=== PATIENT | male | born 1995 | race Two or more races ===

== ENCOUNTER 2021-04-12 13:40 | Outpatient (CLI) | payer MEDICAID | END 2021-04-12 13:41 | disposition critical access hospital (66) | LOC: EMS 13:40 | DX: Z00.8 Encounter for other general examination (principal) | CPT/HCPCS: A0425; A0429; A0999 ==

== ENCOUNTER 2021-04-12 14:03 | Emergency (ER) | payer BC, MEDICAID ==
--- NOTE | 2021-04-12 14:17 | ED Physician Documentation ---
History of Present Illness - Stated complaint Stated Complaint: MHE - Additonal information Additional information: 25-year-old male comes the emergency department for evaluation of mental health exam. He reports that he is in 9 out of 10 psychological discomfort. He feels like he is passing away. He would like his vital signs checked. He states that he is isolated at home. Patient does have a mental health history though the disorder is unclear. He was hospitalized in [place] a number of years ago and started on' Abilify. He states that he sees a psychiatrist Dr. Jacobs in [place]. He stopped taking the Abilify about 10 days ago because he was not sure if he was dying or not. He denies thoughts of self-harm or harm to others. He just wants to "get checked out" Review of Systems Constitutional: reports: Reviewed and negative Ears: reports: Reviewed and negative Nose: reports: Reviewed and negative Throat: reports: Reviewed and negative Cardiac: reports: Reviewed and negative Respiratory: reports: Reviewed and negative GI: reports: Reviewed and negative : reports: Reviewed and negative Skin: reports: Reviewed and negative Psychiatric: reports: Delusions, Anxiety, Insomnia PD PAST MEDICAL HISTORY - Past Surgical History Past Surgical History: No - Present Medications Home Medications: Ambulatory Orders Medication Instructions Recorded Confirmed Ondansetron [Zofran] 4 mg PO Q6H #10 tablet 03/27/13 - Allergies Allergies/Adverse Reactions: Allergies Allergy/AdvReac Type Severity Reaction Status Date / Time No Known Drug Allergies Allergy Verified 04/12/21 14:08 - Social History Does the pt smoke?: No Smoking Status: Never smoker Does the pt drink ETOH?: No Does the pt have substance abuse?: No - Immunizations Immunizations are current?: Yes - POLST Patient has POLST: No PD ED PE NORMAL - General General: Alert and oriented X 3, No acute distress - HEENT HEENT: PERRL - Neck Neck: Supple, no meningeal sign - Cardiac Cardiac: RRR, No murmur - Respiratory Respiratory: Clear bilaterally - Abdomen Abdomen: Normal bowel sounds, Soft, Non tender, Non distended - Derm Derm: Normal color, Warm and dry, No rash - Extremities Extremities: No deformity - Neuro Neuro: Alert and oriented X 3, No motor deficit Eye Opening: Spontaneous Motor: Obeys Commands Verbal: Oriented GCS Score: 15 - Psych Psych: Other (Denies SI HI. Reports feeling like he might be passing away. States that he is in extreme psychological discomfort. No auditory or visual hallucinations. ? delusions) Results - Vitals Vitals: Vital Signs - 24 hr 04/12/21 04/12/21 14:08 14:12 Temperature 36.6 C 36.6 C Heart Rate 96 96 Respiratory 16 16 Rate Blood Pressure 140/90 H 140/90 H O2 Saturation 98 98 Oxygen O2 Source Room air - Labs Labs: Laboratory Tests 04/12/21 04/12/21 04/12/21 14:15 14:15 14:15 WBC 7.4 RBC 4.88 Hgb 14.9 Hct 44.7 MCV 91.6 MCH 30.5 MCHC 33.3 RDW 13.2 Plt Count 248 MPV 10.2 Neut # (Auto) 5.0 Lymph # (Auto) 1.6 [place] # (Auto) 0.5 Eos # (Auto) 0.1 Baso # (Auto) 0.0 Absolute Nucleated RBC 0.00 Nucleated RBC % 0.0 Sodium 137 Potassium 4.2 Chloride 101 Carbon Dioxide 27 Anion Gap 9.0 BUN 10 Creatinine 0.8 Estimated GFR (MDRD) 117 Glucose 105 H Calcium 9.3 Total Bilirubin 0.4 AST 23 ALT 52 Alkaline Phosphatase 100 Total Protein 7.6 Albumin 4.6 Globulin 3.0 Albumin/Globulin Ratio 1.5 Lipase 29 TSH 1.91 Urine Color Urine Clarity Urine pH Ur Specific [place] Urine Protein Urine Glucose (UA) Urine Ketones Urine Occult Blood Urine Nitrite Urine Bilirubin Urine Urobilinogen Ur Leukocyte Esterase Ur Microscopic Review Urine Culture Comments Salicylates < 6.0 Urine Opiates Screen Ur Oxycodone Screen Urine Methadone Screen Ur Propoxyphene Screen Acetaminophen < 10 L Ur Barbiturates Screen Ur Tricyclics Screen Ur Phencyclidine Scrn Ur Amphetamine Screen U Methamphetamines Scrn U Benzodiazepines Scrn Urine Cocaine Screen U Cannabinoids Screen Ethyl Alcohol < 5.0 04/12/21 14:20 WBC RBC Hgb Hct MCV MCH MCHC RDW Plt Count MPV Neut # (Auto) Lymph # (Auto) [place] # (Auto) Eos # (Auto) Baso # (Auto) Absolute Nucleated RBC Nucleated RBC % Sodium Potassium Chloride Carbon Dioxide Anion Gap BUN Creatinine Estimated GFR (MDRD) Glucose Calcium Total Bilirubin AST ALT Alkaline Phosphatase Total Protein Albumin Globulin Albumin/Globulin Ratio Lipase TSH Urine Color LIGHT YELLOW Urine Clarity CLEAR Urine pH 6.5 Ur Specific [place] 1.010 Urine Protein NEGATIVE Urine Glucose (UA) NEGATIVE Urine Ketones NEGATIVE Urine Occult Blood NEGATIVE Urine Nitrite NEGATIVE Urine Bilirubin NEGATIVE Urine Urobilinogen 0.2 (NORMAL) Ur Leukocyte Esterase NEGATIVE Ur Microscopic Review NOT INDICATED Urine Culture Comments NOT INDICATED Salicylates Urine Opiates Screen NEGATIVE Ur Oxycodone Screen NEGATIVE Urine Methadone Screen NEGATIVE Ur Propoxyphene Screen NEGATIVE Acetaminophen Ur Barbiturates Screen NEGATIVE Ur Tricyclics Screen NEGATIVE Ur Phencyclidine Scrn NEGATIVE Ur Amphetamine Screen NEGATIVE U Methamphetamines Scrn NEGATIVE U Benzodiazepines Scrn NEGATIVE Urine Cocaine Screen NEGATIVE U Cannabinoids Screen NEGATIVE Ethyl Alcohol PD MEDICAL DECISION MAKING - ED course Complexity details: reviewed results, re-evaluated patient, d/w patient ED course: 25-year-old male who has an unclear psychiatric disorder but is on atypical ant ipsychotic Abilify presents the emergency department requesting an evaluation to make sure he is okay. He reports to this provider that he does not have thoughts of harm to himself or others but feels that he is in extreme psychological discomfort. He wanted to make sure that he is okay. Screening labs are without acute worrisome findings. No focal neuro signs. He was seen by our social sciences lecturer. She was able to elicit that this gentleman is completing college. 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 A dose was given here in the ER and he is encouraged to resume taking this medication as well as follow-up with his psychiatrist. He was given mental health resources as well as a list of therapists that may help him as he is transitioning through college in the end of the semester. Departure - Departure Disposition: 01 Home, Self Care Clinical Impression: Mental health problem Condition: Stable Record reviewed to determine appropriate education?: Yes Instructions: ED Stress React Comments: Cam thank you for coming to the emergency department today. We always want to help people that are struggling with her mental health. I do recommend that you resume taking the aripiprazole. I want to ensure you that you are very healthy. Your vital signs here were normal. Your labs are also very normal. Completing classes at [employer] can be very stressful and is likely contributing to your symptoms. Please follow-up with the mental health recommendations made by our social sciences lecturer as well is following up with a therapist. If you ever feel unsafe or have thoughts of self-harm then please return immediately to the ER for a second evaluation.
[2021-04-12 14:21] LABS: BASOPHILS % (AUTO) 0.5 %; EOSINOPHILS # (AUTO) 0.1 10^3/uL (0.0-0.7); EOSINOPHILS % (AUTO) 1.5 %; HCT - HEMATOCRIT 44.7 % (42.0-52.0); HGB - HEMOGLOBIN 14.9 g/dL (14.0-18.0); LYMPHOCYTES # (AUTO) 1.6 10^3/uL (1.5-3.5); LYMPHOCYTES % (AUTO) 22.3 %; MEAN CORPUSCULAR HEMOGLOBIN 30.5 pg (27.0-31.0); MEAN CORPUSCULAR HGB CONC 33.3 g/dL (32.0-36.0); MEAN CORPUSCULAR VOLUME 91.6 fL (80.0-94.0); MEAN PLATELET VOLUME 10.2 fL (7.4-11.4); MONOCYTES # (AUTO) 0.5 10^3/uL (0.0-1.0); MONOCYTES % (AUTO) 7.2 %; NEUTROPHILS % (AUTO) 67.4 %; PLT - PLATELET COUNT 248 10^3/uL (130-450); RED BLOOD COUNT 4.88 10^6/uL (4.70-6.10); RED CELL DISTRIBUTION WIDTH 13.2 % (12.0-15.0); WHITE BLOOD COUNT 7.4 x10^3/uL (4.8-10.8)
[2021-04-12 14:22] LABS: MUDS CUTOFF CONCENTRATIONS CUTOFF CONC BELOW:
[2021-04-12 14:31] LABS: BILIRUBIN,URINE NEGATIVE (NEGATIVE); GLUCOSE, URINE (UA) NEGATIVE (NEGATIVE); KETONES,URINE (UA) NEGATIVE (NEGATIVE); LEUKOCYTE ESTERASE, URINE NEGATIVE (NEGATIVE); NITRITE,URINE NEGATIVE (NEGATIVE); OCCULT BLOOD,URINE NEGATIVE (NEGATIVE); PH,URINE 6.5 PH (5.0-7.5); PROTEIN,URINE NEGATIVE (NEGATIVE); UROBILINOGEN,URINE 0.2 (NORMAL) E.U./dL (NORMAL)
[2021-04-12 14:33] LABS: CLARITY,URINE CLEAR (CLEAR)
[2021-04-12 14:37] LABS: ACETAMINOPHEN < 10 ug/mL (10-30); ALBUMIN 4.6 g/dL (3.2-5.5); ALBUMIN/GLOBULIN RATIO 1.5 (1.0-2.2); ALKALINE PHOSPHATASE 100 IU/L (42-121); ALT ALANINE AMINOTRANSFERASE 52 IU/L (10-60); AST ASPARTATE AMINOTRANSFERASE 23 IU/L (10-42); BILIRUBIN,TOTAL 0.4 mg/dL (0.2-1.0); BUN - BLOOD UREA NITROGEN 10 mg/dL (6-20); CALCIUM 9.3 mg/dL (8.5-10.3); CARBON DIOXIDE - CO2 27 mmol/L (21-32); CHLORIDE 101 mmol/L (101-111); CREATININE 0.8 mg/dL (0.6-1.2); ETOH - ETHANOL < 5.0 mg/dL; GFR - MDRD 117 (>89); GLUCOSE 105 mg/dL (70-100); LIPASE 29 U/L (22-51); POTASSIUM 4.2 mmol/L (3.5-5.0); SALICYLATE < 6.0 mg/dL; SODIUM 137 mmol/L (135-145); TOTAL PROTEIN 7.6 g/dL (6.7-8.2)
[2021-04-12 14:42] LABS: AMPHETAMINE SCREEN,URINE NEGATIVE (NEGATIVE); BARBITURATE SCREEN,UR NEGATIVE (NEGATIVE); BENZODIAZEPINES SCREEN, URINE NEGATIVE (NEGATIVE); COCAINE SCREEN URINE NEGATIVE (NEGATIVE); METHADONE SCREEN, URINE NEGATIVE (NEGATIVE); METHAMPHETAMINES SCREEN, URINE NEGATIVE (NEGATIVE); OPIATE SCREEN, URINE NEGATIVE (NEGATIVE); OXYCODONE SCREEN, URINE NEGATIVE (NEGATIVE); PROPOXYPHENE SCREEN, URINE NEGATIVE (NEGATIVE); THC CANNABINOID SCREEN, URINE NEGATIVE (NEGATIVE); TRICYCLIC ANTIDEPRESSANT,URINE NEGATIVE (NEGATIVE)
[2021-04-12 15:54] VITALS: BP 147/107
[2021-04-13] MEDS ORDERED: ARIPiprazole 5 MG TABLET PO SCH (09:00)
== END 2021-04-12 15:54 | disposition home or self-care (01) ==
LOC: EDUNIT# → ED 14:03
DX: F99 Mental disorder, not otherwise specified (principal); T43.596A Underdosing of other antipsychotics and neuroleptics, initial encounter; Z91.128 Patient's intentional underdosing of medication regimen for other reason
CPT/HCPCS: 36415; 80053; 80306; 80307; 80320; 80329; 81001; 81003; 83690; 84443; 85025; 87086; 99283

== ENCOUNTER 2021-05-14 18:00 | Outpatient (CLI) | payer MEDICAID | END 2021-05-14 18:01 | disposition EMS.NT | LOC: EMS 18:00 | DX: F41.9 Anxiety disorder, unspecified (principal) ==

== ENCOUNTER 2021-05-17 17:46 | Outpatient (CLI) | payer MEDICAID | END 2021-05-17 17:47 | disposition EMS.NT | LOC: EMS 17:46 | DX: Z03.89 Encounter for observation for other suspected diseases and conditions ruled out (principal) ==

== ENCOUNTER 2021-05-25 15:26 | Outpatient (CLI) | payer MEDICAID | END 2021-05-25 15:27 | disposition EMS.NT | LOC: EMS 15:26 | DX: F41.9 Anxiety disorder, unspecified (principal) ==